=== PATIENT | male | born 1965 | race Caucasian/White ===

== ENCOUNTER 2018-03-29 17:48 | Emergency (ER) | payer MEDICAID ==
[~2018-03-29] VITALS: Ht 185.4 cm; Wt 156.8 kg
[2018-03-29 18:10] VITALS: BP 108/85
[2018-03-29] MEDS ORDERED: ibuprofen tablet 400 MG TABLET PO ONE (20:00)
[2018-03-29] MEDS ORDERED: acetaminophen 325mg tablet PO ONE (20:00)
[2018-03-29] MEDS ORDERED: IBUP-1984 PO (21:22)
[2018-03-29] MEDS ORDERED: CEPH250T PO (21:22)
[2018-03-29] MEDS ORDERED: ACET-812 PO (21:22)
== END 2018-03-29 22:00 | disposition home or self-care (01) ==
LOC: ER 17:49
DX: S80.811A Abrasion, right lower leg, initial encounter (principal); M25.561 Pain in right knee; I10 Essential (primary) hypertension; Z79.2 Long term (current) use of antibiotics; Z79.899 Other long term (current) drug therapy; W18.39XA Other fall on same level, initial encounter; Y93.61 Activity, american tackle football; Y92.318 Other athletic court as the place of occurrence of the external cause; Y99.8 Other external cause status
CPT/HCPCS: 73564; 93971; 99284

== ENCOUNTER 2018-06-19 15:50 | Emergency (ER) | payer MEDICAID ==
[~2018-06-19] VITALS: Ht 185.4 cm; Wt 160.0 kg
[2018-06-19 16:05] VITALS: BP 160/98
[2018-06-19] MEDS ORDERED: ketorolac trometh inj. 60 MG/2 ML VIAL IM ONE (16:35)
[2018-06-19] MEDS ORDERED: acetaminophen 325mg tablet PO ONE (16:35)
== END 2018-06-19 17:35 | disposition home or self-care (01) ==
LOC: ER 15:51
DX: M25.561 Pain in right knee (principal); I10 Essential (primary) hypertension
CPT/HCPCS: 93971; 96372; 99284; J1885